=== PATIENT | female | born 1960 | race Caucasian/White ===

== ENCOUNTER 2017-09-25 09:16 | Emergency (ER) | payer BC ==
[2017-09-25 09:54] VITALS: BP 138/67
--- NOTE | 2017-09-25 10:29 | UC ---
Ear Complaint HPI - HPI Summary HPI Summary: Right ear crackling sound without pain and drainage. This started this morning and has already resolved. - History of Current Complaint Chief Complaint: UCEar Stated Complaint: rt ear complaint Time Seen by Provider: 09/25/17 10:21 Hx Obtained From: Patient Onset/Duration: Gradual Onset, Resolved Severity Initially: Mild Severity Currently: None Aggravating Factors: Nothing Alleviating Factors: Nothing Associated Signs/Symptoms: Negative: Discharge, Hearing Loss, Trauma to Ear, Swelling @, URI Symptoms - Allergies/Home Medications Allergies/Adverse Reactions: Allergies Allergy/AdvReac Type Severity Reaction Status Date / Time Iodine Allergy Rash Verified 09/25/17 09:47 Home Medications: Home Medications Cholecalciferol [D 400] 800 unit PO DAILY 09/25/17 [History Confirmed 09/25/17] Cyclosporine 0.05% OPHTH (NF) [Restasis 0.05% OPHTH] 1 drop BOTH EYES BID [History Confirmed 09/25/17] Hydrochlorothiazide TAB* [Hydrodiuril TAB*] 25 mg PO DAILY 09/25/17 [History Confirmed 09/25/17] Multiple Vitamins W/ Minerals [Multivitamin Women] 1 tab PO DAILY 09/25/17 [ History Confirmed 09/25/17] PMH/Surg Hx/FS Hx/Imm Hx Previously Healthy: Yes - Surgical History Surgical History: Yes Surgery Procedure, Year, and Place: TENDON RELEASE RIGHT EPICONDREAL--2000 - Family History Known Family History: Positive: Other - No prior ear related history. - Social History Alcohol Use: Occasionally Substance Use Type: None Smoking Status (MU): Never Smoked Tobacco Review of Systems ENT: Other - ear crackling sound. All Other Systems Reviewed And Are Negative: Yes Physical Exam Triage Information Reviewed: Yes Appearance: Well-Appearing, No Pain Distress, Well-Nourished Vital Signs: Initial Vital Signs Temp 97.7 F 09/25/17 09:49 Pulse 55 09/25/17 09:49 Resp 18 09/25/17 09:49 BP 138/67 09/25/17 09:49 Pulse Ox 100 09/25/17 09:49 Vital Signs Reviewed: Yes Eyes: Positive: Conjunctiva Clear ENT: Positive: Other - right ear canal cerumen.. Negative: Nasal drainage Neck: Positive: Supple, Nontender, No Lymphadenopathy Respiratory: Positive: Lungs clear, Normal breath sounds, No respiratory distress, No accessory muscle use. Negative: Respiratory distress Cardiovascular: Positive: RRR, No Murmur, Pulses Normal, Brisk Capillary Refill Abdomen Description: Positive: Nontender, No Organomegaly. Negative: Distended , Guarding Musculoskeletal: Positive: Strength Intact, ROM Intact, No Edema Neurological: Positive: Alert, Muscle Tone Normal, Fatigued Psychological: Positive: Age Appropriate Behavior Skin: Negative: rashes Ear Complaint Course/Dx - Differential Dx/Diagnosis Provider Diagnoses: right cerumen Discharge - Discharge Plan Condition: Good Disposition: HOME Patient Education Materials: Cerumen Impaction (ED) Referrals: Gem Marshall MD [Primary Care Provider] -
== END 2017-09-25 10:58 | disposition home or self-care (01) ==
LOC: UCCORT 09:16
DX: H61.21 Impacted cerumen, right ear (principal); Z72.89 Other problems related to lifestyle
CPT/HCPCS: 99212; G0463

== ENCOUNTER 2019-01-15 19:23 | Emergency (ER) | payer BC ==
[2019-01-15 20:44] VITALS: BP 152/83
[2019-01-15] MEDS ORDERED: Ibuprofen TAB* 600 MG PO ONE (21:09)
--- NOTE | 2019-01-15 21:15 | UC ---
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 No shortness of breath or chest pain. 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 No urinary symptoms, nausea or vomiting. - History of Current Complaint Chief Complaint: UCGeneralIllness Time Seen by Provider: 01/15/19 20:58 Hx Obtained From: Patient Onset/Duration: Started Days Ago - 2 Timing: Constant Initial Severity: Moderate Current Severity: Moderate Pain Intensity: 6 Aggravating Factors: Nothing Alleviating Factors: Nothing Associated Signs and Symptoms: Arthralgia, Cough, Headache, Myalgia - Risk Factors Pseudomonas Risk Factors: Negative Serious Bacterial Infection Risk Factors: Negative - Allergy/Home Medications Allergies/Adverse Reactions: Allergies Allergy/AdvReac Type Severity Reaction Status Date / Time iodine Allergy Rash Verified 01/15/19 20:44 Home Medications: Home Medications Ibuprofen TAB* [Advil TAB*] 200 mg PO Q8H PRN 01/15/19 [History Confirmed ] PMH/Surg Hx/FS Hx/Imm Hx - Additional Past Medical History Additional PMH: obesity Auto-immune disorder with chronically elevated CRP Cardiovascular History: Hypertension - borderline hypertension by history, mostly takes HCTZ for leg edema - Surgical History Surgical History: Yes Surgery Procedure, Year, and Place: TENDON RELEASE RIGHT EPICONDREAL--2000 - Family History Known Family History: Positive: Hypertension - mother, Other - No prior ear related history. - Social History Occupation: Employed Full-time Lives: Alone Alcohol Use: Occasionally Substance Use Type: None Smoking Status (MU): Never Smoked Tobacco Review of Systems All Other Systems Reviewed And Are Negative: Yes Constitutional: Positive: Fever, Fatigue Skin: Positive: Negative Eyes: Positive: Negative ENT: Positive: Sore Throat Respiratory: Positive: Cough. Negative: Shortness Of Breath Cardiovascular: Negative: Palpitations, Chest Pain Gastrointestinal: Negative: Abdominal Pain, Vomiting Genitourinary: Negative: Dysuria, Frequency Motor: Positive: Negative Neurovascular: Positive: Negative Musculoskeletal: Positive: Myalgia Neurological: Positive: Headache Psychological: Positive: Negative Is Patient Immunocompromised?: No - reports normal white count. Physical Exam Triage Information Reviewed: Yes Appearance: Ill-Appearing, Obese Vital Signs: Initial Vital Signs Temp 100 F 01/15/19 20:42 Pulse 95 01/15/19 20:42 Resp 16 01/15/19 20:42 BP 152/83 01/15/19 20:42 Pulse Ox 98 01/15/19 20:42 Vital Signs Reviewed: Yes Eyes: Positive: Conjunctiva Clear ENT: Positive: Pharyngeal erythema, TMs normal. Negative: Tonsillar swelling, Tonsillar exudate Neck: Positive: Supple, Nontender, No Lymphadenopathy Respiratory Exam: Other - congested cough Respiratory: Positive: Lungs clear, Normal breath sounds Cardiovascular: Positive: RRR, No Murmur Abdomen Description: Positive: Nontender, No Organomegaly, Soft Bowel Sounds: Positive: Present Musculoskeletal Exam: Normal Neurological: Positive: Alert, Muscle Tone Normal Psychological Exam: Normal Skin Exam: Normal Course/Dx - Course Course Of Treatment: Given history, cover for possible early pneumonia. Flu negative. Discussed with patient and she agrees. - Febrile Illness Differential Diagnoses: Fever of Unknown Origin, Pneumonia, Other: - influenza - Diagnoses Provider Diagnosis: Fever Discharge - Sign-Out/Discharge Documenting (check all that apply): Patient Departure All imaging exams completed and their final reports reviewed: No Studies - Discharge Plan Condition: Stable Disposition: HOME Prescriptions: Azithromycin TAB* [Zithromax TAB (Z-ALEJO) 250 mg #6 tabs] 250 mg PO DAILY #4 tab Patient Education Materials: Bacterial Pneumonia (ED) Referrals: Gem Marshall MD [Primary Care Provider] - Additional Instructions: Given your clinical appearance, and negative flu test, we will treat for possible early pneumonia. Ensure high intake of fluids and rest, use ibuprofen as needed for fever. The first dose of azithromycin was given today. Complete the course of antibiotic and follow up if you have persistent fever or do not begin to see improvement. - Billing Disposition and Condition Condition: STABLE Disposition: Home
[2019-01-15 21:32] LABS: Influenza A Molecular NEGATIVE (Negative); Influenza B Molecular NEGATIVE (Negative)
[2019-01-15] MEDS ORDERED: Azithromycin TAB* 250 MG PO ONE (21:44)
== END 2019-01-15 22:00 | disposition home or self-care (01) ==
LOC: UCCORT 19:23
DX: R50.9 Fever, unspecified (principal); R05 Cough; R51 Headache; M79.10 Myalgia, unspecified site; R53.83 Other fatigue; D89.89 Other specified disorders involving the immune mechanism, not elsewhere classified; R79.82 Elevated C-reactive protein (CRP); I10 Essential (primary) hypertension; R60.0 Localized edema
CPT/HCPCS: 99212; A9270-GY; G0463

== ENCOUNTER 2019-12-24 15:11 | Emergency (ER) | payer BC ==
[2019-12-24 17:36] LABS: Influenza A Molecular Negative (Negative); Influenza B Molecular Negative (Negative)
--- NOTE | 2019-12-24 17:41 | UC ---
Respiratory Complaint HPI - HPI Summary HPI Summary: Pt present with c/o sudden onset of fever and tender lymph nodes x 2 days. - History of Current Complaint Chief Complaint: UCGeneralIllness Stated Complaint: FEVER/ST/MORALES Time Seen by Provider: 12/24/19 17:03 Hx Obtained From: Patient ?: No Onset/Duration: Sudden Onset, Lasting Days, Still Present Timing: Constant Severity Initially: Mild Severity Currently: Mild Associated Signs And Symptoms: Positive: Fever - Risk Factors Cardiac Risk Factors: Negative Pseudomonas Risk Factors: Negative Tuberculosis Risk Factors: Negative - Allergies/Home Medications Allergies/Adverse Reactions: Allergies Allergy/AdvReac Type Severity Reaction Status Date / Time iodine Allergy Rash Verified 12/24/19 16:34 Home Medications: Home Medications Cholecalciferol (Vitamin D3) [D 400] 2,000 unit PO DAILY 09/25/17 [History Confirmed 12/24/19] Hydrochlorothiazide TAB* [Hydrodiuril TAB*] 25 mg PO DAILY 09/25/17 [History Confirmed 12/24/19] Mv-Min/Iron/Folic/Calcium/Vitk [Multivitamin Womens] 1 tab PO DAILY 03/11/18 [ History Confirmed 12/24/19] Ibuprofen TAB* [Advil TAB*] 200 mg PO Q8H PRN 01/15/19 [History Confirmed ] PMH/Surg Hx/FS Hx/Imm Hx Previously Healthy: Yes - Surgical History Surgical History: Yes Surgery Procedure, Year, and Place: TENDON RELEASE RIGHT EPICONDREAL--2000 - Family History Known Family History: Positive: Hypertension - mother, Other - No prior ear related history. - Social History Occupation: Employed Full-time Lives: With Family Alcohol Use: Occasionally Substance Use Type: None Smoking Status (MU): Never Smoked Tobacco Have You Smoked in the Last Year: No Review of Systems All Other Systems Reviewed And Are Negative: Yes Constitutional: Positive: Fever Skin: Positive: Negative Eyes: Positive: Negative ENT: Positive: Other - tender "glands" Respiratory: Positive: Negative Cardiovascular: Positive: Negative Gastrointestinal: Positive: Negative Genitourinary: Positive: Negative Motor: Positive: Negative Neurovascular: Positive: Negative Musculoskeletal: Positive: Negative Neurological/Mental Status: Positive: Negative Psychological: Positive: Negative Is Patient Immunocompromised?: No Physical Exam Triage Information Reviewed: Yes Appearance: Well-Appearing Vital Signs Reviewed: Yes Eye Exam: Normal ENT: Positive: Hearing grossly normal Respiratory: Positive: No respiratory distress Musculoskeletal Exam: Normal Neurological Exam: Normal Psychological Exam: Normal Skin Exam: Normal Respiratory Course/Dx - Differential Dx/Diagnosis Differential Diagnosis/HQI/PQRI: Influenza, Other - COVID Provider Diagnosis: Viral syndrome Discharge ED - Sign-Out/Discharge Documenting (check all that apply): Patient Departure All imaging exams completed and their final reports reviewed: No Studies - Discharge Plan Condition: Stable Disposition: HOME Patient Education Materials: Viral Syndrome (ED) Forms: COVID-19 Tested & Isolation Referrals: Gem Marshall MD [Primary Care Provider] - If Needed - Billing Disposition and Condition Condition: STABLE Disposition: Home
[2019-12-24 17:57] VITALS: BP 168/89
--- OUTSIDE RECORDS SUMMARY | 2019-12-24 18:17 | XMS REPORT | Continuity of Care Document ---
:1960 External Reference #:[id number] Author Name Gem Marshall M.D. Address [address] [place] [address] Care Team Providers Name Role Phone Tony Tucker SMELLER - Rheumatology Care Team Information Capacitor Inspector [phone] Adali Kothari MD - Sports Medicine Care Team Information Capacitor Inspector Gem Marshall - Family Medicine Care Team Information Capacitor Inspector Ed Hall MD - Gastroenterology Care Team Information Capacitor Inspector Problems Active Problems Provider Date Acute upper respiratory infection Mark Anthony Bautista M.D. Onset: 08/20/2011 Shoulder joint pain Mark Anthony Bautista M.D. Onset: 10/23/2011 Impaired fasting glycaemia Mark Anthony Bautista M.D. Onset: 12/12/2011 Obesity Mark Anthony Bautista M.D. Onset: 12/12/2011 Symptom of skin and integumentary tissue eGm Marshall M.D. Onset: 11/08 Social History Type Date Description Comments Sex Unknown Tobacco Use Start: Unknown Never Smoked Cigarettes ETOH Use Social Alcohol 1 drink a week. Tobacco Use Start: Unknown Patient has never smoked Smoking Status Reviewed: 02/03/19 Patient has never smoked Allergies, Adverse Reactions, Alerts Active Allergies Reaction Severity Comments Date Iodine rash, metallic taste, fever 09/10/2008 Medications Active Medications SIG Qnty Indications Ordering Date Provider Albuterol Sulfate HFA 2 puffs up to 8.500gm J20.9 Gem Adams 07/23/2019 108(90Base) 4 times daily Otis Marshall mcg/Act Aerosol Multivitamin daily Gem L. 07/23/2019 Otis Marshall Hydrochlorothiazide take 1/2 30tabs R60.0 Gem L. 01/03/2017 25mg Tablets tablet to 1 Otis Marshall tablet by mouth One To Two Times A Day Restasis use in eyes 1Bottle Unknown 0.05% Emulsion bid as needed Multi Complete 1 by mouth Unknown Capsules every day Vitamin D-400 once daily Unknown 400Unit Tablets History Medications Medrol dose-pack as 1pack J20.9 Gem L. 07/23/2019 - 4mg instructed Otis Marshall 11/03/2019 Tablets Immunizations CPT Code Status Date Vaccine Lot # [id number] Given 08/22/2017 Influenza Vac, Quadrivalent, Slit Virus, Im [id number] Given 06/05/2011 DO Not Use Split Influenza Virus Vaccine [id number] Given 12/14/2009 Tetanus And Diptheria Adult Preservative Free [id number] >7Yrs Vital Signs Date Vital Result Comment 11/03/2019 5:01pm BP Systolic 150 mmHg BP Diastolic 82 mmHg Heart Rate 72 /min Body Temperature 97.9 F Height 65 inches 5'5" Weight 320.00 lb BMI (Body Mass Index) 53.2 kg/m2 07/23/2019 8:44am BP Systolic 124 mmHg BP Diastolic 80 mmHg Heart Rate 80 /min Body Temperature 98.3 F Respiratory Rate 18 /min Weight 313.00 lb Results Test Acquired Date Facility Test Result H/L Range Note Laboratory test 11/03/2019 [facility] Hemoglobin A1c 5.6 % % 4.1- 5.7 finding (607)- - ([facility]) Laboratory test 07/23/2019 [facility] Quickstrep Negative Negative finding (607)- - Procedures Date Code Description Status 02/11/2019 [id number] Mammogram Completed 03/11/2018 [id number] Colonoscopy Completed 09/06/2017 [id number] Mammogram Completed 01/10/2017 [id number] Mammogram Completed 12/08/2015 [id number] Mammogram Completed 06/17/2012 [id number] Mammogram Completed 12/31/2008 [id number] Mammogram Completed Medical Devices Description No Information Available Encounters Type Date Location Provider Dx Diagnosis Office Visit 07/23/2019 [facility] Gem Adams J02.9 Acute pharyngitis , 8:30a Otis Marshall unspecified J20.9 Acute bronchitis, unspecified E66.09 Other obesity due to excess calories Office Visit 05/08/2019 8:30a [facility] Gem Adams E66.09 Other obesity Otis Marshall due to excess calories K64.8 Other hemorrhoids Assessments Date Code Description Provider 11/03/2019 R73.01 Impaired fasting glucose Gem Marshall M.D. 11/03/2019 L94.9 Localized connective tissue disorder, Gem Marshall M.D. unspecified 11/03/2019 F43.21 Adjustment disorder with depressed mood Gem Marshall M.D. 07/23/2019 J02.9 Acute pharyngitis, unspecified Gem Marshall M.D. 07/23/2019 J20.9 Acute bronchitis, unspecified Gem Marshall M.D. 07/23/2019 E66.09 Other obesity due to excess calories Gem Marshall M.D. 05/08/2019 E66.09 Other obesity due to excess calories Gem Marshall M.D. 05/08/2019 K64.8 Other hemorrhoids Gem Marshall M.D. Plan of Treatment Future Appointment(s):02/02/2020 3:40 pm - Gem [facility] M.D. at [facility]11/03/2019 - Gem Marshall M.D.R73.01 Impaired fasting euyaqaoD62.9 Localized connective tissue disorder, unspecifiedComments: Khalif CHAPPELL.comHeal your body, Myranda Tay know about the paleo program and intermittent fasting.MARCELINO Justin. EMDR. 18 and over. [phone] Smith, mind body connected/emdr Meera Pisano, Phd. [phone]. "It is never too late to be what you might have been."Yamile MathewsThe hidden [email or web address] Displays/Follow up:3 months.F43.21 Adjustment disorder with depressed moodComments:See #2. counselling highly recommended.AllComments:Medication Management Patient Understands medications she 's taking? Yes No Are there Barriers to Adherence? Yes No Has the patient been asked about herbal supplements and therapies, and OTC meds? Yes No Care Plan1. Patient has been queried about patient's goals/preferences and functional/lifestyle goals at relevant visits. If relevant, describe: na2. Treatment goals as explained to the patient: above3. Are there barriers to meeting treatment goals? Yes No If Yes, please describe:4. Self-Management goals as described to the patient: Yes No Functional Status Description No Information Available Mental Status Description No Information Available Referrals Description No Information Available
== END 2019-12-24 18:22 | disposition home or self-care (01) ==
LOC: UCCORT 15:11
DX: B34.9 Viral infection, unspecified (principal); Z88.3 Allergy status to other anti-infective agents
CPT/HCPCS: 87651; 99211; G0463; U0002

== ENCOUNTER 2019-12-30 15:05 | Observation (INO) | payer BC ==
[2019-12-30] MEDS ORDERED: NS 0.9% 1000 ML** 1,000 ML IV ONE (15:46)
--- NOTE | 2019-12-30 16:00 | ED ---
HPI Cardiac - HPI Summary HPI Summary: Patient is a 59 y/o F presenting to [facility] for new-onset afib. The patient was evaluated by her PCP today and was noted to have afib. She was referred to the ED for evaluation. Patient denies palpitations. No Hx of CAD, VTE, afib noted. Patient additionally notes that she has had a persistent fever for the past eight days. Patient has been taking Tylenol and ibuprofen SKEIN SPOOLER with only temporary relief. In ED, patient is afebrile on vitals. She denies MORALES, cough, sore throat, CP, SOB, abdominal pain, dysuria. Home medications and allergies are reviewed. - History of Current Complaint Chief Complaint: EDDysrhythmPalp Stated Complaint: NEW ON SET AFIB PER EMS Time Seen by Provider: 12/30/19 15:21 Hx Obtained From: Patient Onset/Duration: Started Hours Ago Timing: Lasting Hours Pain Intensity: 0 Pain Scale Used: 0-10 Numeric Associated Signs and Symptoms: Positive: Fever, Other: - negative - dysuria. Negative: Chest Pain, Headaches, Shortness of Breath, Palpitations, Cough, Productive Cough, Nonproductive Cough, Abdominal Pain - Allergy/Home Medications Allergies/Adverse Reactions: Allergies Allergy/AdvReac Type Severity Reaction Status Date / Time iodine Allergy Rash Verified 12/24/19 16:34 Home Medications: Home Medications Cholecalciferol (Vitamin D3) [Vitamin D3] 2,000 unit PO DAILY 09/25/17 [History Confirmed 12/30/19] Hydrochlorothiazide TAB* [Hydrodiuril TAB*] 12.5 - 25 mg PO DAILY 09/25/17 [ History Confirmed 12/30/19] Mv-Min/Iron/Folic/Calcium/Vitk [Women's Multivitamin Tablet] 1 tab PO DAILY 02/21 [History Confirmed 12/30/19] Diltiazem CD CAP* [Cardizem CD CAP*] 120 mg PO DAILY #30 cap.cd 12/31/19 [Rx] Metoprolol Tartrate TAB* [Lopressor TAB*] 25 mg PO Q12HR #60 tab 12/31/19 [Rx] Potassium Chlor TAB* [Potassium Chlor TAB 20 MEQ*] 20 meq PO EVERY OTHER DAY #7 tab.er 12/31/19 [Rx] Rivaroxaban TAB(*) [Xarelto 20 mg] 20 mg PO 1700 #30 tab 12/31/19 [Rx] PMH/Surg Hx/FS Hx/Imm Hx Endocrine/Hematology History: Denies: Hx Diabetes, Hx Thyroid Disease Cardiovascular History: Denies: Hx Hypertension Respiratory History: Denies: Hx Asthma, Hx Chronic Obstructive Pulmonary Disease (COPD) GI History: Denies: Hx Ulcer Musculoskeletal History: Denies: Hx Rheumatoid Arthritis, Hx Osteoporosis - Surgical History Surgery Procedure, Year, and Place: TENDON RELEASE RIGHT EPICONDREAL--2000 Infectious Disease History: No Infectious Disease History: Denies: Hx Hepatitis, Hx Human Immunodeficiency Virus (HIV), Traveled Outside the [place] in Last 30 Days - Family History Known Family History: Positive: Hypertension - mother, Other - No prior ear related history. - Social History Alcohol Use: Occasionally Substance Use Type: Reports: None Smoking Status (MU): Never Smoked Tobacco Have You Smoked in the Last Year: No Review of Systems Positive: Fever Negative: Sore Throat Negative: Palpitations, Chest Pain Negative: Shortness Of Breath, Cough Negative: Abdominal Pain Negative: dysuria Negative: Headache All Other Systems Reviewed And Are Negative: Yes Physical Exam - Summary Physical Exam Summary: Constitutional: Well-developed, Well-nourished, Alert. (-) Distressed Skin: Warm, Dry HENT: Normocephalic; Atraumatic Eyes: Conjunctiva normal Neck: Musculoskeletal ROM normal neck. (-) JVD, (-) Stridor, (-) Tracheal deviation Cardio: Tachycardic, irregularly irregular rhythm, Heart sounds normal; Intact distal pulses; The pedal pulses are 2+ and symmetric. Radial pulses are 2+ and symmetric. (-) Murmur Pulmonary/Chest wall: Effort normal. (-) Respiratory distress, (-) Wheezes, (-) Rales Abd: Soft, (-) tenderness, (-) Distension, (-) Guarding, (-) Rebound Musculoskeletal: (-) Edema Lymph: (-) Cervical adenopathy Neuro: Alert, Oriented x3 Psych: Mood and affect Normal Triage Information Reviewed: Yes Vital Signs On Initial Exam: Initial Vitals Temp Pulse Resp BP Pulse Ox 98.9 F 133 20 156/92 97 12/30/19 15:28 12/30/19 15:28 12/30/19 15:28 12/30/19 15:28 12/30/19 15:28 Vital Signs Reviewed: Yes Procedures - Sedation Patient Received Moderate/Deep Sedation with Procedure: No Diagnostics - Vital Signs Vital Signs Temp Pulse Resp BP Pulse Ox 12/30/19 15:35 129 23 156/92 95 12/30/19 15:33 21 12/30/19 15:28 98.9 F 133 20 156/92 97 - Laboratory Result Diagrams: 12/31/19 07:55 12/31/19 07:55 Lab Statement: Any lab studies that have been ordered have been reviewed, and results considered in the medical decision making process. - Radiology CXR Radiology Interpretation Completed By: Radiologist Summary of Radiographic Findings: IMPRESSION: 1. No focal airspace opacification. 2. Mild cardiomegaly. THIS REPORT WAS REVIEWED BY ED PHYSICIAN. - EKG 1540 Cardiac Rate: Other Rate - rate of 129 BPM EKG Rhythm: Atrial Fibrillation Summary of EKG Findings: EKG showed rapid afib with rate of 129 BPM, no STEMI. ED physician has reviewed and interpreted this EKG. Disposition - Course Course Of Treatment: Patient is a 59 y/o F presenting to [facility] for new-onset afib. The patient was evaluated by her PCP today and was noted to have afib. She was referred to the ED for evaluation. No Hx of CAD, VTE, afib noted. Patient additionally notes that she has had a persistent fever for the past eight days. Patient has been taking Tylenol and ibuprofen SKEIN SPOOLER with only temporary relief. In ED, patient is afebrile on vitals. She denies MORALES, cough, sore throat, CP, SOB, abdominal pain, dysuria. On physical exam, patient is noted to be tachycardic with an irregularly irregular rhythm. EKG showed rapid afib with rate of 129 BPM, no STEMI. Bloodwork was obtained, abnormal values include potassium 2.7, creatinine 0.96, CRP 93.07, chloride 97, albumin/ globulin ratio 0.9, MCH 32, Hgb 16.4, RBC 5.17. During ED course, patient received fluids, Klor Con Er tab 40 meq PO ED, metoprolol 25 mg PO, and diltiazem 10 mg IV SLOW. CXR IMPRESSION: 1. No focal airspace opacification. 2. Mild cardiomegaly. 1715 - Patient's case had been discussed with Dr. Lyn, Dr. Lyn accepts for admission. - Diagnoses Provider Diagnoses: Rapid atrial fibrillation, Hypokalemia - Physician Notifications Discussed Care Of Patient With: Quyen Lyn Time Discussed With Above Provider: 17:15 Instructed by Provider To: Other - 8155 - Patient's case had been discussed with Dr. Lyn, Dr. Lyn accepts for admission. - Critical Care Time Critical Care Time: 30-74 min Discharge ED - Sign-Out/Discharge Documenting (check all that apply): Patient Departure - admit - Discharge Plan Condition: Improved Disposition: ADMITTED TO [facility] - Billing Disposition and Condition Condition: IMPROVED Disposition: Admitted to [facility] - Attestation Statements Document Initiated by Ritesh: Yes Documenting Scribe: KATHRYN CONTRERAS Provider For Whom Ritesh is Documenting (Include Credential): MIKE OZUNA DO Scribjeremias Attestation: KATHRYN Brock scribed for MIKE OZUNA DO on 12/31/19 at 1405. Scribe Documentation Reviewed: Yes Provider Attestation: The documentation as recorded by the KATHRYN orantes accurately reflects the service I personally performed and the decisions made by MIKE raman DO Status of Scribe Document: Viewed
[2019-12-30 16:13] LABS: ABS Eosinophils 0.1 10^3/ul (0-0.6); ABS Lymphocytes 1.8 10^3/ul (1.0-4.8); ABS Monocytes 0.7 10^3/ul (0-0.8); ABS Neutrophils 6.7 10^3/ul (1.5-7.7); Eosinophil % 0.8 %; Hematocrit 46 % (35-47); Hemoglobin 16.4 g/dL (12.0-16.0); Lymphocyte % 18.9 %; Mean Corpuscular HGB Conc 35 g/dL (31-36); Mean Corpuscular Hemoglobin 32 pg (27-31); Mean Corpuscular Volume 90 fL (80-97); Mean Platelet Volume 7.5 fL (7.4-10.4); Platelet Count 325 10^3/uL (150-450); Red Blood Count 5.17 10^6 /uL (3.70-4.87); Red Cell Distribution Width 13 % (10-15); White Blood Count 9.3 10^3/uL (3.5-10.8)
[2019-12-30] MEDS ORDERED: Diltiazem IV BAG* D5W Premix 125 MG/125 ML BAG IV ONE (16:20)
[2019-12-30] MEDS ORDERED: Diltiazem IV push/loading dose 5 MG/ML 5 ML vial (25 mg) IV SLOW PU ONE (16:22)
[2019-12-30 16:36] LABS: Albumin 3.5 g/dL (3.2-5.2); Albumin/Globulin Ratio 0.9 (1-3); BUN/Creatinine Ratio 16.7 (8-20); C Reactive Protein 93.07 mg/L (<8.01); Calcium 9.2 mg/dL (8.6-10.3); EGFR African American 72.5 (>60); EGFR Non-African American 59.9 (>60); Globulin 3.8 g/dL (2-4); Magnesium 2.1 mg/dL (1.9-2.7); Total Protein 7.3 g/dL (6.4-8.9)
[2019-12-30 16:37] LABS: Troponin I 0.01 ng/mL (<0.03)
[2019-12-30] MEDS ORDERED: Potassium Chlor TAB* 20 MEQ TAB.ER PO ONE (16:38)
[2019-12-30 16:39] LABS: Potassium 2.7 mmol/L (3.5-5.0)
[2019-12-30 16:49] LABS: TSH (Thyroid Stimulating Horm) 1.33 mcIU/mL (0.34-5.60)
[2019-12-30] MEDS ORDERED: Metoprolol Succinate XL TAB* 50 MG PO ONE (16:54)
[2019-12-30] MEDS ORDERED: NS 0.9% 1000 ML** 1,000 ML IV SCH (18:00)
[2019-12-30] MEDS ORDERED: Rivaroxaban TAB(*) 20 MG TAB PO SCH (18:00)
[2019-12-30] MEDS ORDERED: Diltiazem IV BAG* D5W Premix 125 MG/125 ML BAG IV SCH (18:00)
[2019-12-30] MEDS ORDERED: cefTRIAXone(*) 1 GM in NS 0.9% 50 ML* 50 ML IVPB ONE (18:30)
[2019-12-30] MEDS: KCL 20 MEQ/100 ML IVPREMIX* 20 MEQ/100 ML BAG IV SCH ×3 (18:37→23:27)
--- NOTE | 2019-12-30 19:30 | HP ---
CC: Dr. Gem Marshall* HISTORY AND PHYSICAL: DATE OF ADMISSION: 12/30/19 PRIMARY CARE PROVIDER: Dr. Gem Marshall. CHIEF COMPLAINT: Daily fevers for the past 8 days. 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 She stated that she had been having fevers daily for the past 8 days. On 12/24/19, she was tested for COVID as well as influenza and streptococcus for strep throat. All those tests came back negative. Despite that, the patient continues to have daily fevers. The last high fever was 103 degrees 3 days ago. Yesterday, after she used ibuprofen and Tylenol in the evening, her temperature was 100.5 degrees. She has not been eating well due to basically no appetite and complains of generalized weakness. Denies sore throat, cough, or palpitations. When she was seen for a followup for fever today, she was noted to have rapid heart rate in the 150s. She was diagnosed as an outpatient with atrial fibrillation and sent to the hospital for evaluation. Here, she is in rapid atrial fibrillation with a heart rate in the 150s. She denies any chest pain or palpitations. She is going to be placed on overnight observation. PAST MEDICAL HISTORY: 1. Lymphedema for which the patient takes hydrochlorothiazide. 2. History of hypertension, currently as per the patient no longer treated, but she used to be on TROY inhibitor. 3. History of tendon release in the right elbow. CURRENT MEDICATIONS: Include: 1. Hydrochlorothiazide 12.5 mg daily. 2. Ibuprofen on a p.r.n. basis. 3. Vitamin D3 2000 units daily. 4. Multivitamin 1 tablet daily. ALLERGIES: IODINE. FAMILY HISTORY: Mother with history of COPD. Father with history of hypertension. Both are alive. SOCIAL HISTORY: The patient drinks 2 drinks in 1 week. She denies any tobacco or drug use. She lives alone and her mother is her surrogate. Her mother's name is Randi Kemp. The patient works at [employer]. REVIEW OF SYSTEMS: Please see history of present illness. All the remaining 12 systems were reviewed with the patient and were otherwise negative. PHYSICAL EXAMINATION GENERAL: The patient is a pleasant 59-year-old female, who is in no acute distress. The patient is alert and oriented x3. VITAL SIGNS: Blood pressure of 143/85, heart rate of 116 to 150 and irregularly irregular, respiratory rate 27, oxygen saturation 96% on room air, temperature of 98.9. HEENT: Head: Atraumatic, normocephalic. Eyes: Pupils are equal, reactive to light and accommodation. Oropharynx is clear. Mucosa moist. NECK: Supple. No JVD. No bruits bilaterally. RESPIRATORY: Clear to auscultation bilaterally. CARDIOVASCULAR: Irregularly irregular rhythm. No murmur. ABDOMEN: Soft, nontender. Bowel sounds present in all 4 quadrants. EXTREMITIES: There is bilateral mild lymphedema. Pulses are +2 bilaterally. There is no clubbing and no cyanosis. NEUROLOGIC: Speech is clear. Cranial nerves II through XII grossly intact. Motor strength is 5/5 bilaterally. DIAGNOSTIC STUDIES/LAB DATA: Included, please note that influenza status, coronavirus PCR, and group A strep rapid testing all of them were negative and they were performed on 12/24/19. CBC today showed white blood cell count of 9.3, hemoglobin of 16.4, hematocrit of 46, and platelets of 325. Sodium was 137, potassium 2.7, chloride 97, carbon dioxide 31, BUN 16, creatinine 0.96. Liver function tests unremarkable. C-reactive protein of 93. Magnesium of 2.1. Troponin of 0.01. TSH of 1.33. Portable chest x-ray reviewed by myself prior to the official radiologist's report shows possibility of left lower lung infiltrate. The patient's EKG showed atrial fibrillation with rapid ventricular response with heart rate of 129 beats per minute with no significant ST changes. ASSESSMENT AND PLAN: 1. The patient is going to be placed on overnight observation for atrial fibrillation. She is going to be placed on diltiazem drip. She received a dose of beta-babatunde in the ED. She was informed about her risk of cardioembolism due to atrial fibrillation, especially that she is asymptomatic from cardiac standpoint and she agreed to anticoagulation. She is going to be started on Xarelto at 20 mg daily. 2. The patient has had daily fevers for the past 8 days. Despite that COVID was initially negative, the testing performed on the patient is sensitive and only 70%. She also appears to have left lower lobe infiltrate. At this point, I will place the patient on broad-spectrum antibiotics including ceftriaxone and doxycycline and we will retest the patient for COVID. 3. Due to that the patient is going to be retested for COVID, I will not obtain a transthoracic echocardiogram and cardiac consultation at this point. The potential exposure risk would be too great at this point. 4. The patient's severe hypokalemia is likely dietary and that is possibly the culprit of the patient getting in atrial fibrillation. I will replace it intravenously. She also received 40 mEq of potassium p.o. in the ED. 5. For DVT prophylaxis, the patient is going to be placed on Xarelto as mentioned above. 6. In regards to her hydrochlorothiazide treatment for lymphedema, that is going to be held when the patient is being titrated on diltiazem. 7. The patient's code status is full. Her surrogate is her mother. TIME SPENT: Approximately 65 minutes was spent on admission of this patient, more than half that time was spent [id number] with the patient during the interview and physical exam. [id number]/[facility] #: [id number] NYLA
[2019-12-30] MEDS ORDERED: cefTRIAXone(*) 1 GM in NS 0.9% 50 ML* 50 ML IVPB SCH (20:00)
[2019-12-30] MEDS ORDERED: DOXYcycline CAP(*) 100 MG PO SCH (21:00)
[2019-12-30] MEDS: Metoprolol Tartrate TAB* 25 MG PO SCH (21:11)
[2019-12-30] MEDS: Diltiazem TAB* 30 MG PO SCH (21:29)
[2019-12-31] MEDS: Diltiazem TAB* 30 MG PO SCH (04:19)
[2019-12-31 08:31] LABS: ABS Basophils 0.1 10^3/ul (0-0.2); ABS Lymphocytes 1.6 10^3/ul (1.0-4.8); ABS Monocytes 0.9 10^3/ul (0-0.8); ABS Neutrophils 6.8 10^3/ul (1.5-7.7); Eosinophil % 0.3 %; Hematocrit 39 % (35-47); Hemoglobin 13.9 g/dL (12.0-16.0); Lymphocyte % 17.3 %; Mean Corpuscular HGB Conc 35 g/dL (31-36); Mean Corpuscular Hemoglobin 32 pg (27-31); Mean Corpuscular Volume 90 fL (80-97); Mean Platelet Volume 7.5 fL (7.4-10.4); Platelet Count 309 10^3/uL (150-450); Red Cell Distribution Width 14 % (10-15); White Blood Count 9.4 10^3/uL (3.5-10.8)
[2019-12-31] MEDS: Acetaminophen TAB* 325 MG PO PRN ×2 (08:31→16:09)
[2019-12-31] MEDS: Metoprolol Tartrate TAB* 25 MG PO SCH (08:32)
[2019-12-31 08:55] LABS: BUN/Creatinine Ratio 17.1 (8-20); Calcium 8.1 mg/dL (8.6-10.3); EGFR African American 86.9 (>60); EGFR Non-African American 71.9 (>60); Potassium 3.2 mmol/L (3.5-5.0)
[2019-12-31] MEDS ORDERED: Cholecalciferol TAB* 1000 UNITS PO SCH (09:00)
[2019-12-31] MEDS ORDERED: Potassium Chlor TAB* 20 MEQ TAB.ER PO ONE (10:40)
[2019-12-31] MEDS ORDERED: Diltiazem CD CAP* 120 MG PO SCH (11:00)
--- NOTE | 2019-12-31 14:01 | DS ---
CC: Dr. Marshall * DISCHARGE SUMMARY: DATE OF ADMISSION: 12/30/19 DATE OF DISCHARGE: 12/31/19 PRIMARY CARE PROVIDER: Dr. Marshall. DISPOSITION AT DISCHARGE: Home. CONDITION AT DISCHARGE: Stable. DISCHARGE DIAGNOSES: 1. Atrial fibrillation with rapid ventricular response. The patient converted to sinus rhythm after a dose of Cardizem and metoprolol. 2. Hypokalemia, likely due to low appetite. 3. Febrile illness, rule out COVID. MEDICATIONS AT DISCHARGE: Include: 1. Hydrochlorothiazide, take p.r.n. lymphedema as previously. 2. Cardizem CD 120 mg daily. 3. Metoprolol tartrate 25 mg b.i.d. 4. Xarelto 20 mg daily. 5. Potassium chloride 20 mEq every other day for a total of 7 doses, then stop. FOLLOWUP: At discharge, the patient is recommended to follow up with her primary care provider in approximately 3 to 7 days. PENDING TESTS: Pending at discharge are the patient's blood cultures and COVID testing. Please note that blood cultures will be resulted today at approximately 5 p.m., and if those are negative, the patient is going to be discharged from the hospital. The patient's COVID testing was resubmitted on 12/30/19 and is currently pending. Please note that the patient was tested on 12/24/19 for rapid strep, influenza A and B, and coronavirus and all of those were negative at that time. DIAGNOSTIC STUDIES/LAB DATA: On the day of discharge, sodium of 136, potassium 3.2, chloride 102, carbon dioxide 26, BUN 14, creatinine 0.82. CBC: White blood cell count 9.4, hemoglobin 13.9, hematocrit 39, and platelets 309. Portable chest x-ray obtained at admission and read by the radiologist as "mild cardiomegaly, no focal airspace opacification." Please note that both Cardiology consult and echocardiogram were not obtained during the patient's hospital stay in an attempt to limit exposure. Please note that this case was curbsided with our infectious disease services. HOSPITALIZATION COURSE: Yvonne Resendez is a 59-year-old female with history of lymphedema and hypertension, who stated that she had been having fevers for the past 8 days or so. Her fevers were up to 103 degrees. She also had subjective chills, but no other symptoms. Specifically, she had no respiratory symptoms, no joint pains, no nausea or vomiting, no diarrhea. Another additional problem that she experienced when she was feeling ill was that her appetite was poor. Probably due to that, she developed hypokalemia and then developed asymptomatic atrial fibrillation. When she came in to her primary care provider for followup of her being febrile still and has COVID results, she was noted to be in asymptomatic atrial fibrillation with a heart rate in the 150s. She complained of no chest pain and no shortness of breath. She was sent to the ED for evaluation. Here, she got a couple of doses of IV diltiazem as well as p.o. metoprolol and she converted within approximately 3 hours to sinus rhythm. She also was treated with multiple doses of IV potassium and p.o. potassium. She was rehydrated throughout the night. The very next day, she felt "a thousand times better." Although she did develop a temperature of 103 degrees the night of admission. She felt well and she was ready to go home. She is still going to receive another dose of potassium chloride since her potassium today was still low at 3.2. She is going to be also cautiously replaced with potassium at home with a dose every other day. Our service curbsided the infectious disease service. Due to the patient's continuation of fevers and that COVID testing sensitivity is approximately 70%, the patient was retested at admission on 12/30/19 and the results are currently pending. At this point, the recommendation from the Infectious Diseases was for the patient to be discharged after the patient's blood cultures result negative in 24 hours after admission. That should be around 5 p.m. today. The patient is agreeable to that and she is going to stay until today in the afternoon. She is recommended to follow up with Dr. Marshall in approximately 3 to 7 days. PHYSICAL EXAMINATION: On the day of discharge, blood pressure of 145/74, heart rate of 78 and regular, respiratory rate 18, oxygen saturation 95% on room air, temperature of 100.3. Please note that remainder of the physical exam was unchanged from admission. [id number]/[facility] #: [id number] NYLA
[2019-12-31 15:16] VITALS: BP 138/86
== END 2019-12-31 16:45 | disposition home or self-care (01) ==
LOC: ED 15:05 → MED 17:49
PROVIDERS: ADMIT Internal Medicine; ATTEND Internal Medicine
DX: I48.20 Chronic atrial fibrillation, unspecified (principal); R50.9 Fever, unspecified; E87.6 Hypokalemia; I10 Essential (primary) hypertension; I89.0 Lymphedema, not elsewhere classified; I51.7 Cardiomegaly; Z20.828 Contact with and (suspected) exposure to other viral communicable diseases; Z79.01 Long term (current) use of anticoagulants; Z79.899 Other long term (current) drug therapy; E66.9 Obesity, unspecified
CPT/HCPCS: 36415; 71045; 80048; 80053; 83605; 83735; 84443; 84484; 85025; 86140; 87040; 87635; 93005; 96361; 96374; 99285; A9270-GY; G0378; J0696; J3480

== ENCOUNTER 2020-01-01 14:29 | Emergency (ER) | payer BC ==
--- NOTE | 2020-01-01 14:37 | ED ---
Complex/Multi-Sys Presentation - HPI Summary HPI Summary: Patient is a 59 y/o F presenting to [facility] via EMS with chief complaint of palpitations. She was recently evaluated at [facility] for new-onset afib. Patient was admitted to [facility] and hydrated with fluids overnight. The following day, patient had stated that she felt improved and was ready to go home. Patient had negative blood cultures. She was discharged to home. Patient states that around 1130 today, the patient had onset of palpitations once more. No aggravating factors noted, patient states that she was doing "nothing" when Sx onset. Palpitations are characterized as skipping beats. She denies CP, SOB, cough, sore throat, body aches, dizziness/light-headedness, hematuria, dysuria. Patient states that she has had continued fevers, with a temp of 101 F this morning after having taken Tylenol 1000 mg (patient notes that she has been experiencing fevers for the past eight days). Patient had been tested for COVID- 19 previously and had a negative test result. Urine culture done by PCP earlier this week. Currently, she states that she feels fatigued, has been having a MORALES, and notes that the glands around her neck have felt swollen. Patient lives alone at home. Patient does not report any chills, erythema of eyes, sore throat , chest pain, shortness of breath, cough, abdominal pain, nausea/vomiting, dysuria, hematuria, myalgia, rash, or dizziness. Home medications and allergies are reviewed. - History Of Current Complaint Hx Obtained From: Patient Onset/Duration: Lasting Hours, Still Present Timing: Hours Aggravating Factor(s): nothing Associated Signs And Symptoms: Positive: Weakness - fatigue, Headache, Palpitations, Edema, Fever, Other - denies CP, SOB, cough, sore throat, body aches, dizziness/light-headedness, hematuria, dysuria, myalgia, rash. Negative : Dizziness, SOB, Cough, Chest Pain, Nausea, Vomiting, Abdominal Pain, Dysuria - Allergies/Home Medications Allergies/Adverse Reactions: Allergies Allergy/AdvReac Type Severity Reaction Status Date / Time iodine Allergy Rash Verified 12/24/19 16:34 Home Medications: Home Medications Cholecalciferol (Vitamin D3) [Vitamin D3] 400 unit PO DAILY 09/25/17 [History Confirmed 01/01/20] Hydrochlorothiazide TAB* [Hydrodiuril TAB*] 12.5 - 25 mg PO .1-2X/DAY 09/25/17 [ History Confirmed 01/01/20] Mv-Min/Iron/Folic/Calcium/Vitk [Women's Multivitamin Tablet] 1 tab PO DAILY 02/21 [History Confirmed 01/01/20] Cyclosporine 0.05% OPHTH (NF) [Restasis 0.05% OPHTH] 1 drop BOTH EYES BID PRN [History Confirmed 01/01/20] PMH/Surg Hx/FS Hx/Imm Hx Endocrine/Hematology History: Denies: Hx Diabetes, Hx Thyroid Disease Cardiovascular History: Reports: Other Cardiovascular Problems/Disorders - HX OF PALPITATIONS Denies: Hx Hypertension Respiratory History: Denies: Hx Asthma, Hx Chronic Obstructive Pulmonary Disease (COPD) GI History: Denies: Hx Ulcer Musculoskeletal History: Denies: Hx Rheumatoid Arthritis, Hx Osteoporosis Sensory History: Reports: Hx Contacts or Glasses Denies: Hx Hearing Aid Opthamlomology History: Reports: Hx Contacts or Glasses - Surgical History Surgery Procedure, Year, and Place: TENDON RELEASE RIGHT EPICONDREAL--2000 Infectious Disease History: Denies: Hx Hepatitis, Hx Human Immunodeficiency Virus (HIV) - Family History Known Family History: Positive: Hypertension - mother, Other - No prior ear related history. - Social History Alcohol Use: Occasionally Substance Use Type: Reports: None Hx Tobacco Use: No Smoking Status (MU): Never Smoked Tobacco Have You Smoked in the Last Year: No Review of Systems Positive: Fever, Fatigue. Negative: Chills Negative: Erythema Negative: Sore Throat Positive: Palpitations. Negative: Chest Pain Negative: Shortness Of Breath, Cough Negative: Abdominal Pain, Vomiting, Nausea Negative: dysuria, hematuria Positive: Edema - swelling of neck glands . Negative: Myalgia Negative: Rash Neurological/Mental Status: Other - positive - dizziness Positive: Headache All Other Systems Reviewed And Are Negative: Yes Physical Exam - Summary Physical Exam Summary: Constitutional: Well-developed, Well-nourished, Alert. (-) Distressed Skin: Warm, Dry HENT: Normocephalic; Atraumatic Eyes: Conjunctiva normal Neck: Musculoskeletal ROM normal neck. (-) JVD, (-) Stridor, (-) Tracheal deviation Cardio: Irregularly irregular, Heart sounds normal; Intact distal pulses; The pedal pulses are 2+ and symmetric. Radial pulses are 2+ and symmetric. (-) Murmur Pulmonary/Chest wall: Faint crackles in right lung base. (-) Respiratory distress, (-) Wheezes, (-) Rales Abd: Soft, (-) tenderness, (-) Distension, (-) Guarding, (-) Rebound Musculoskeletal: (-) Edema Lymph: (-) Cervical adenopathy Neuro: Alert, Oriented x3 Psych: Mood and affect Normal Triage Information Reviewed: Yes Vital Signs On Initial Exam: Initial Vital Signs Temp 98.8 F 01/01/20 14:48 Pulse 122 01/01/20 14:48 Resp 14 01/01/20 14:48 BP 149/97 01/01/20 14:48 Pulse Ox 94 01/01/20 14:48 Vital Signs Reviewed: Yes Procedures - Sedation Patient Received Moderate/Deep Sedation with Procedure: No Diagnostics - Laboratory Result Diagrams: 01/01/20 15:30 01/01/20 15:30 Lab Statement: Any lab studies that have been ordered have been reviewed, and results considered in the medical decision making process. - CT CHEST CT CT Interpretation Completed By: Radiologist Summary of CT Findings: IMPRESSION: 1. RIGHT LOWER LOBE INFECTIOUS/ INFLAMMATORY BRONCHIOLITIS. 2. SOLID CIRCUMSCRIBED 7 MM NODULE ALONG THE RIGHT MINOR FISSURE FOR WHICH 6-12 MONTH. FOLLOW-UP BY CHEST CT IS RECOMMENDED TO DOCUMENT STABILITY. 3. STIGMATA OF CHRONIC CALCIFIED GRANULOMATOUS DISEASE. 4. HEPATIC STEATOSIS. 5. CHOLELITHIASIS. THIS REPORT WAS REVIEWED BY ED PHYSICIAN. - EKG 1503 Cardiac Rate: Other Rate - rate of 132 BPM EKG Rhythm: Atrial Fibrillation Summary of EKG Findings: EKG showed rapid afib with rate of 132 BPM, no STEMI. ED physician has reviewed and interpreted this EKG. Re-Evaluation - Re-Evaluation First Eval Re-Evaluation Time: 16:53 Comment: Rate was still elevated after Diltiazem 10 mg IV. Patient received 20 mg IV Diltiazem Second Eval Re-Evaluation Time: 18:40 Comment: Rate was still elevated, Cardizem 120 mg PO administered. Third Eval Re-Evaluation Time: 21:23 Comment: Patients HR is still in mid 120s after Lopressor 5 mg IV and Metoprolol 50 mg PO. Complex Multi-Symp Course/Dx Course Of Treatment: Patient is a 59 y/o F presenting to [facility] via EMS with chief complaint of palpitations. She was recently evaluated at [facility] for new- onset afib. Patient was admitted to [facility] and hydrated with fluids overnight. The following day, patient had stated that she felt improved and was ready to go home. Patient had negative blood cultures. She was discharged to home. Patient states that around 1130 today, the patient had onset of palpitations once more. No aggravating factors noted, patient states that she was doing "nothing" when Sx onset. Palpitations are characterized as skipping beats. She denies CP, SOB, cough, sore throat, body aches, dizziness/light-headedness, hematuria, dysuria. Patient states that she has had continued fevers, with a temp of 101 F this morning after having taken Tylenol 1000 mg (patient notes that she has been experiencing fevers for the past eight days). Patient had been tested for COVID- 19 previously and had a negative test result. Currently, she states that she feels fatigued, has been having a MORALES, and notes that the glands around her neck have felt swollen. Patient lives alone at home. Patient does not report any chills, erythema of eyes, sore throat, chest pain, shortness of breath, cough, abdominal pain, nausea/vomiting, dysuria, hematuria, myalgia, rash, or dizziness. On physical exam, patient is noted to have faint crackles in right lung base as well as an irregularly irregular rhythm. EKG showed rapid afib with rate of 132 BPM, no STEMI. 1536 - Patient's case was discussed with Dr. Lyn, who had admitted the patient during her previous visit. Rate control of patient was agreed to be the goal for the patient. If rate is controlled, there is no indication for admission of the patient. During ED course, patient received fluids and diltiazem 10 mg IV SLOW PUSH. Bloodwork was obtained, abnormal values include trop of 0.03, WBC 12.5, absolute neuts 9.8, absolute neuts 9.8, absolute monos 0.9, potassium 3.4, glucose 108, total bilirubin 1.2, AST 80, ALT 119, albumin/globulin ratio 0.9. CT CHEST IMPRESSION: 1. RIGHT LOWER LOBE INFECTIOUS/INFLAMMATORY BRONCHIOLITIS. 2. SOLID CIRCUMSCRIBED 7 MM NODULE ALONG THE RIGHT MINOR FISSURE FOR WHICH 6-12 MONTH. FOLLOW-UP BY CHEST CT IS RECOMMENDED TO DOCUMENT STABILITY. 3. STIGMATA OF CHRONIC CALCIFIED GRANULOMATOUS DISEASE. 4. HEPATIC STEATOSIS. 5. CHOLELITHIASIS. INR was 1.43. 1653 Rate was still elevated after Diltiazem 10 mg IV. Patient received 20 mg IV Diltiazem. 1840 - Rate was still elevated, Cardizem 120 mg PO administered. Repeated trop was 0.02, both lactic acids were 0.9. 2001 - Patient has remained in rapid afib throughout visit. Patient's case was discussed with Dr. Real, Dr. Real will discuss potential admission with the patient. Drip to be held until Dr. Real makes admission decision. 2009 Dr. Real spoke with Dr. Lyn, it was advised to hold off on drip due to COVID-19 concerns. 5 mg lopressor, 50 mg metoprolol administration was advised. Reassess afterwards. 2122 - After Lopressor 5 mg IV and Metoprolol 50 mg PO, patients HR is still in mid 120s, afib/aflutter noted. Patient's case was discussed with Dr. Real, Dr. Real recommends Diltiazem 25 mg IV and agrees to evaluate the patient for admission. Patient is signed-out to Dr. Wallace at 2200 01/01/20 shift end pending hospitalist evaluation of the patient. - Diagnoses Provider Diagnoses: Bronchiolitis, Atrial fibrillation with RVR, Suspected COVID-19 virus infection - Physician Notifications Discussed Care Of Patient With: Quyen Lyn Time Discussed With Above Provider: 15:36 Instructed by Provider To: Other - 1536 - Patient's case was discussed with Dr. Lyn, who had admitted the patient during her previous visit. Rate control of patient was agreed to be the goal for the patient. If rate is controlled, there is no indication for admission of the patient. 2009 Dr. Real spoke with Dr. Lyn, it was advised to hold off on drip due to COVID-19 concerns. 5 mg lopressor, 50 mg metoprolol administration was advised. Reassess afterwards. After Lopressor 5 mg IV and Metoprolol 50 mg PO, patients HR is still in mid 120s, afib/aflutter noted. Patient's case was discussed with Dr. Real, Dr. Real recommends Diltiazem 25 mg IV and agrees to evaluate the patient for admission. - Critical Care Time Critical Care Time: 75-104 min - 75 minutes CCT Discharge ED - Sign-Out/Discharge Documenting (check all that apply): Sign-Out Patient Signing out patient TO: Juliane Wallace - Discharge Plan Referrals: Gem Marshall MD [Primary Care Provider] - - Attestation Statements Document Initiated by Scribe: Yes Documenting Scribe: KATHRYN CONTRERAS Provider For Whom Scribe is Documenting (Include Credential): ANGELO JUAREZ MD Scribe Attestation: IKATHRYN, scribed for ANGELO JUAREZ MD on 01/01/20 at 2662. Status of Scribe Document: Ready
--- OUTSIDE RECORDS SUMMARY | 2020-01-01 15:15 | XMS REPORT | Continuity of Care Document ---
:1960 External Reference #:[id number] Author Name Faina Siegel, DYAN Address [address] [place] [address] Care Team Providers Name Role Phone Tony Tucker KELLY - Rheumatology Care Team Information Molder Operator Adali Kothari MD - Sports Medicine Care Team Information Molder Operator Gem Marshall - Family Medicine Care Team Information Molder Operator [phone] Ed Hall MD - Gastroenterology Care Team Information Molder Operator Problems Active Problems Provider Date Acute upper respiratory infection Mark Anthony Bautista M.D. Onset: 08/20/2011 Shoulder joint pain Mark Anthony Bautista M.D. Onset: 10/23/2011 Impaired fasting glycaemia Mark Anthony Bautista M.D. Onset: 12/12/2011 Obesity Mark Anthony Bautista M.D. Onset: 12/12/2011 Symptom of skin and integumentary tissue Gem Marshall M.D. Onset: 11/08 Social History Type Date Description Comments Sex Unknown Tobacco Use Start: Unknown Never Smoked Cigarettes ETOH Use Social Alcohol 1 drink a week. Tobacco Use Start: Unknown Patient has never smoked Smoking Status Reviewed: 12/28/19 Patient has never smoked Allergies, Adverse Reactions, Alerts Active Allergies Reaction Severity Comments Date Iodine rash, metallic taste, fever 09/10/2008 Medications Active Medications SIG Qnty Indications Ordering Date Provider Multivitamin daily Gem Adams 07/23/2019 Otis Marshall Hydrochlorothiazide take 1/2 to 1 30tabs R60.0 Gem Adams 01/03/2017 25mg Tablets tablet by Otis Marshall mouth one to two times a day Restasis use in eyes 1Bottle Unknown 0.05% Emulsion bid as needed Multi Complete 1 by mouth Unknown Capsules every day Vitamin D-400 once daily Unknown 400Unit Tablets History Medications Albuterol Sulfate 2 puffs up to 4 8.500gm J20.9 Gem AlonzoJuan 07/23/2019 - HFA times daily Otis Marshall 12/28/2019 108(90Base) mcg/Act Aerosol Medrol dose-pack as 1pack J20.9 Gem AlonzoJuan 07/23/2019 - 4mg Tablets instructed Otis Marshall 11/03/2019 Immunizations CPT Code Status Date Vaccine Lot # [id number] Given 08/22/2017 Influenza Vac, Quadrivalent, Slit Virus, Im [id number] 51449 Given 06/05/2011 DO Not Use Split Influenza Virus Vaccine 05485 Given 12/14/2009 Tetanus And Diptheria Adult Preservative Free [id number] >7Yrs Vital Signs Date Vital Result Comment [...] Test Result H/L Range Note Laboratory test 12/24/2019 [facility] [place] Strep Negative Negative 1 finding Molecular Rapid Influenza A 12/24/2019 [facility] Influenza A Negative Negative & B Molecular Molecular Influenza B Molecular Negative Negative 2 Laboratory test 12/24/2019 [facility] Covid19, PCR Undetected Undetected 3 finding Laboratory test 11/03/2019 [facility] Hemoglobin A1c 5.6 % % 4.1- 5.7 finding (607)- - (Fma) Laboratory test 07/23/2019 [facility] Quickstrep Negative Negative finding (607)- - 1 Spray Gun Striper: [id number] Suboptimal collection technique may reduce sensitivity of test. Refer to the [employer] Test Catalog for collection information: [email or web address] As with all diagnostic procedures, the laboratory results obtained should be used in conjunction with other clinical information available to the physician, including confirmation by another method, as applicable. 2 Spray Gun Striper: [id number] 3 SARS-CoV-2 RNA is not detected. ADDITIONAL INFORMATION Testing was performed using the jimena SARS-CoV-2 assay ([employer] acquired by [employer] on the jimena nanoRETE0 System. Fact sheets for this Emergency Use Authorization (EUA) assay can be found at the following links: For Healthcare Providers: https://www.fda.gov/media/155354/download For Patients: https://www.fda.gov/media/322879/download Test Performed by: [place] [address] Vice President [employer]: Reyes Willson M.D. Ph.D.; CLIA# [id number] Procedures Date Code Description Status 11/03/2019 49736 Finger Or Heel Stick Completed 02/11/2019 64238026 Mammogram Completed 03/11/2018 [id number] Colonoscopy Completed 09/06/2017 [id number] Mammogram Completed 01/10/2017 [id number] Mammogram Completed 12/08/2015 [id number] Mammogram Completed 06/17/2012 [id number] Mammogram Completed 12/31/2008 [id number] Mammogram Completed Medical Devices Description No Information Available Encounters Type Date Location Provider Dx Diagnosis Office Visit 12/28/2019 Main Office Faina Reynolds R50.9 Fever, unspecified 9:00a DYAN Siegel Office Visit 11/03/2019 [facility] Gem Adams R73.01 Impaired fasting 4:00p Otis Marshall glucose L94.9 Localized connective tissue disorder, unspecified F43.21 Adjustment disorder with depressed mood Office Visit 07/23/2019 8:30a [facility] Gem Adams J02.9 Acute pharyngitis, Otis Marshall unspecified J20.9 Acute bronchitis, unspecified E66.09 Other obesity due to excess calories Assessments Date Code Description Provider 12/28/2019 R50.9 Fever, unspecified Faina Gail Siegel, OB NURSE 11/03/2019 R73.01 Impaired fasting glucose Gem Marshall M.D. 11/03/2019 L94.9 Localized connective tissue disorder, Gem Marshall M.D. unspecified 11/03/2019 F43.21 Adjustment disorder with depressed mood Gem Marshall M.D. 07/23/2019 J02.9 Acute pharyngitis, unspecified Gem Marshall M.D. 07/23/2019 J20.9 Acute bronchitis, unspecified Gem Marshall M.D. 07/23/2019 E66.09 Other obesity due to excess calories Gem Marshall M.D. Plan of Treatment Future Appointment(s):02/02/2020 3:40 pm - Gem Marshall M.D. at [facility]12/28/2019 - Faina Siegel, NPR50.9 Fever, unspecifiedComments:Tylenol or Ibuprofen for fever/pain Tylenol 650mg-1000 mg every 8 hours Motrin 400-600mg every 4-6 hours Awaiting COVID results - continue isolation if fever still present in 2 days we will have her come in to assess, UA/CXR work up fever of unknown origin.AllComments:Medication Management Patient Understands medications he 's taking? Yes No Are there Barriers to Adherence? Yes No Has the patient been asked about herbal supplements and therapies, andOT meds? Yes No Care Plan1. Patient has been queried about patient's goals/preferences and functional/ lifestyle goals at relevant visits. If relevant, describe: na2. Treatment goals as explained to the patient: above3. Are there barriers to meeting treatment goals? Yes No If Yes, please describe: health status, disease process4. Self-Management goals as described to the patient: Yes NoAs always, we strongly encourage a healthy diet and making physical activity a part of your every day life. If you have questions about how or where to start , please contact the office. Functional Status Description No Information Available Mental Status Description No Information Available Referrals Description No Information Available
--- OUTSIDE RECORDS SUMMARY | 2020-01-01 15:15 | XMS REPORT | Continuity of Care Document ---
:1960 External Reference #:[id number] Author Name Faina Siegel, DYAN Address [address] [place] [address] Care Team Providers Name Role Phone Tony Tucker KELLY - Rheumatology Care Team Information Locker Attendant Adali Kothari MD - Sports Medicine Care Team Information Locker Attendant Gem Marshall - Family Medicine Care Team Information Locker Attendant [phone] Ed Hall MD - Gastroenterology Care Team Information Locker Attendant Problems Active Problems Provider Date Acute upper [...] Patient has never smoked Smoking Status Reviewed: 12/30/19 Patient has never smoked Allergies, Adverse Reactions, [...] CPT Code Status Date Vaccine Lot # [id number] Given 08/22/2017 Influenza Vac, Quadrivalent, Slit Virus, Im [id number] 01224 Given 06/05/2011 DO Not Use Split Influenza Virus Vaccine 29326 Given 12/14/2009 Tetanus And Diptheria Adult Preservative Free [id number] >7Yrs Vital Signs Date Vital Result Comment 12/30/2019 2:05pm BP Systolic 158 mmHg difficulty with diastoic d/t irregular HR BP Diastolic 94 mmHg difficulty with diastoic d/t irregular HR Heart Rate 104 /min Body Temperature 98.9 F Respiratory Rate 20 /min O2 % BldC Oximetry 98 % 11/03/2019 5:01pm BP Systolic 150 mmHg BP Diastolic 82 mmHg Heart Rate 72 /min Body Temperature 97.9 F Height 65 inches 5'5" Weight 320.00 lb BMI (Body Mass Index) 53.2 kg/m2 Results Test Acquired Date Facility Test Result H/L Range Note Laboratory test 12/24/2019 [facility] Rapid Strep Negative Negative 1 finding Molecular Rapid Influenza A 12/24/2019 [facility] Influenza A Negative Negative & B Molecular Molecular Influenza B Molecular Negative Negative 2 Laboratory test 12/24/2019 [facility] Covid19, PCR Undetected Undetected 3 finding Laboratory test 11/03/2019 [facility] Hemoglobin A1c 5.6 % % 4.1- 5.7 finding (607)- - (Fma) Laboratory test 07/23/2019 [facility] Quickstrep Negative Negative finding (607)- - 1 Sfdc Consultant: [id number] Suboptimal collection technique may reduce sensitivity of test. Refer to the [employer] Test Catalog for collection information: [email or web address] As with all diagnostic procedures, the laboratory results obtained should be used in conjunction with other clinical information available to the physician, including confirmation by another method, as applicable. 2 Sfdc Consultant: [id number] 3 SARS-CoV-2 RNA is not detected. ADDITIONAL INFORMATION Testing was performed using the jimena SARS-CoV-2 assay ([employer] on the jimena Crunched0 System. Fact sheets for this Emergency Use Authorization (EUA) assay can be found at the following links: For Healthcare Providers: https://www.fda.gov/media/242426/download For Patients: https://www.fda.gov/media/551530/download Test Performed by: [place] [address] Lotus Notes Developer: Reyes Willson M.D. Ph.D.; CLIA# [id number] Procedures Date Code Description Status 12/30/2019 85464 Electrocardiogram Complete Completed 11/03/2019 13074 Finger Or Heel Stick Completed 02/11/2019 [id number] Mammogram Completed 03/11/2018 26146527 Colonoscopy Completed 09/06/2017 18109955 Mammogram Completed 01/10/2017 [id number] Mammogram Completed 12/08/2015 80115645 Mammogram Completed 06/17/2012 [id number] Mammogram Completed 12/31/2008 01440009 Mammogram Completed Medical Devices Description No Information Available Encounters Type Date Location Provider Dx Diagnosis Office Visit 12/30/2019 Main Office Faina Siegel, R50.9 Fever, unspecified 1:30p TONGER I48.91 Unspecified atrial fibrillation Office Visit 12/28/2019 9:00a Main Office Faina Reynolds R50.9 Fever, Siegel, TONGER unspecified Office Visit 11/03/2019 4:00p [facility] Gem Adams R73.01 Impaired fasting Otis Marshall glucose L94.9 Localized connective tissue disorder, unspecified F43.21 Adjustment disorder with depressed mood Office Visit 07/23/2019 8:30a [facility] Office Gem Adams J02.9 Acute pharyngitis, Otis Marshall unspecified J20.9 Acute bronchitis, unspecified E66.09 Other obesity due to excess calories Assessments Date Code Description Provider 12/30/2019 R50.9 Fever, unspecified Faina Siegel, TONGER 12/30/2019 I48.91 Unspecified atrial fibrillation Faina Siegel, DYAN 12/28/2019 R50.9 Fever, unspecified Faina Siegel, TONGER 11/03/2019 R73.01 Impaired fasting glucose Gem Marshall M.D. 11/03/2019 L94.9 Localized connective tissue disorder, Gem Marshall M.D. unspecified 11/03/2019 F43.21 Adjustment disorder with depressed mood Gem Marshall M.D. 07/23/2019 J02.9 Acute pharyngitis, unspecified Gem Marshall M.D. 07/23/2019 J20.9 Acute bronchitis, unspecified Gme Marshall M.D. 07/23/2019 E66.09 Other obesity due to excess calories Gem Marshall M.D. Plan of Treatment Future Appointment(s):02/02/2020 3:40 pm - Gem Marshall M.D. at [facility] [id number]/30/2019 - Faina Siegel, NPR50.9 Fever, unspecifiedNew Labs:Ua - Non Micro (Fma), Ordered: 12/30/19Comments:fever of unknown origin, in addition to the A fib with RVR sending to [facility] to initiate work up - CXR, blood cultures, to start.I48.91 Unspecified atrial fibrillationComments:sent to [facility] for continued evaluation and managementAllComments:Medication Management Patient Understands medications he 's taking? Yes No Are there Barriers to Adherence? Yes No Has the patient been asked about herbal supplements and therapies, andOTC meds? Yes No Care Plan1. Patient has been queried about patient's goals/preferences and functional/ lifestyle goals at relevant visits. If relevant, describe: na2. Treatment goals as explained to the patient: above3. Are there barriers to meeting treatment goals? Yes No If Yes, please describe: disease process4. Self-Management goals as described to the patient: Yes NoAs always, we strongly encourage a healthy diet and making physical activity a part of your everyday life. If you have questions about how or where to start, please contact the office. Functional Status Description No Information Available Mental Status Description No Information Available Referrals Description No Information Available
[2020-01-01] MEDS ORDERED: NS 0.9% 1000 ML** 1,000 ML IV ONE (15:32)
[2020-01-01] MEDS ORDERED: Diltiazem IV push/loading dose 5 MG/ML 5 ML vial (25 mg) IV SLOW PU ONE ×3 (15:32→21:26)
[2020-01-01 15:58] LABS: ABS Basophils 0.1 10^3/ul (0-0.2); ABS Eosinophils 0.1 10^3/ul (0-0.6); ABS Lymphocytes 1.6 10^3/ul (1.0-4.8); ABS Monocytes 0.9 10^3/ul (0-0.8); ABS Neutrophils 9.8 10^3/ul (1.5-7.7); Eosinophil % 0.5 %; Hematocrit 42 % (35-47); Hemoglobin 14.2 g/dL (12.0-16.0); Mean Corpuscular HGB Conc 34 g/dL (31-36); Mean Corpuscular Hemoglobin 31 pg (27-31); Mean Corpuscular Volume 90 fL (80-97); Mean Platelet Volume 7.4 fL (7.4-10.4); Platelet Count 349 10^3/uL (150-450); Red Blood Count 4.62 10^6 /uL (3.70-4.87); Red Cell Distribution Width 14 % (10-15); White Blood Count 12.5 10^3/uL (3.5-10.8)
[2020-01-01 16:18] LABS: ALT 119 U/L (7-52); AST 80 U/L (13-39); Albumin 3.3 g/dL (3.2-5.2); Albumin/Globulin Ratio 0.9 (1-3); Alkaline Phosphatase 101 U/L (34-104); Anion Gap 10 mmol/L (2-11); Blood Urea Nitrogen 9 mg/dL (6-24); CO2 Carbon Dioxide 24 mmol/L (22-32); Calcium 8.7 mg/dL (8.6-10.3); Chloride 102 mmol/L (101-111); EGFR African American 106.1 (>60); EGFR Non-African American 87.7 (>60); Globulin 3.5 g/dL (2-4); Glucose 108 mg/dL (70-100); Potassium 3.4 mmol/L (3.5-5.0); Sodium 136 mmol/L (135-145); Total Protein 6.8 g/dL (6.4-8.9)
[2020-01-01 16:21] LABS: Troponin I 0.03 ng/mL (<0.03)
[2020-01-01 16:43] LABS: INR 1.43 (0.82-1.09)
[2020-01-01 16:51] LABS: Magnesium 1.9 mg/dL (1.9-2.7)
[2020-01-01] MEDS ORDERED: Diltiazem CD CAP* 120 MG PO ONE (17:28)
[2020-01-01] MEDS ORDERED: Metoprolol Tartrate TAB* 50 mg PO ONE (20:09)
[2020-01-01] MEDS ORDERED: Metoprolol Tartrate IV* 1 MG/ML 5 ML VIAL IV ONE (20:09)
--- NOTE | 2020-01-01 23:15 | ED ---
Progress - Progress Note Progress Note: The patient is a sign-out from Dr. Frankie Sherman MD, to Dr. Juliane Wallace MD, at change of shift at 2200 on 01/01/20, pending hospitalist evaluation with plan for admission. Dr. Real has evaluated the patient and determined her safe and appropriate for discharge. Re-Evaluation - Re-Evaluation First Eval Re-Evaluation Time: 16:53 Second Eval Re-Evaluation Time: 18:40 Third Eval Re-Evaluation Time: 21:23 Course/Dx - Diagnoses Provider Diagnoses: Bronchiolitis, Atrial fibrillation with RVR, Suspected COVID-19 virus infection Discharge ED - Sign-Out/Discharge Documenting (check all that apply): Patient Departure - Patient will be discharged home., Receiving Sign-Out Receiving patient FROM: Frankie Sherman - The patient is a sign-out from Dr. Frankie Sherman MD, to Dr. Juliane Wallace MD, at change of shift at 2200 on 01/01/20, pending hospitalist evaluation. - Discharge Plan Condition: Stable Disposition: HOME Prescriptions: dilTIAZem HCl [Cardizem LA] 120 mg PO DAILY #30 tab.er.24h Metoprolol Succinate XL TAB* [Toprol XL TAB*] 25 mg PO BEDTIME #30 tab.xl Patient Education Materials: A-fib (Atrial Fibrillation) (DC), Bronchiolitis ( ED) Referrals: Gem Marshall MD [Primary Care Provider] - 3 Days Additional Instructions: Follow up with your primary care provider in 2-3 days. Return to the emergency department for any new or worsening symptoms. - Billing Disposition and Condition Condition: STABLE Disposition: Home - Attestation Statements Document Initiated by Ritesh: Yes Documenting Scribe: Charisse Melchor Provider For Whom Ritesh is Documenting (Include Credential): Juliane Wallace MD Scribe Attestation: Charisse Brock scribed for Juliane Wallace MD on 01/02/20 at 0231. Scribe Documentation Reviewed: Yes Provider Attestation: The documentation as recorded by the Charisse orantes accurately reflects the service I personally performed and the decisions made by me, Juliane Wallace MD Status of Scribe Document: Viewed
--- NOTE | 2020-01-02 00:43 | CONSULT ---
Subjective Date of Service: 01/02/20 Interval History: Patient is 59yo F with PMHx significant for Newly diagnosed Afib and started on Xarelto, HTN who presented to the ED with CC palpitations. patient was recently admitted 12/30/19 for new onset Afib and discharged 12/31/19. Patient reported fever of 1 week and was tested for COVID which came back negative. Patient sent home on Xarelto 20mg daily, Cardizem 120 mg daily and Metoprolol 25 mg BID. Here in the ER patient was given IV Cardizem 20 mg, 10 mg and a combination of IV Lopressor 5 mg and IV Cardizem 25 mg plus her home dose of Cardizem and Lopressor 50 mg before the Afib could break. Patient was not started on Cardizem drip due to the fact she is being retested for Covid -19 and it will not be appropriate for the nursing staff and allied healthcare services for risk of Covid exposure at this time. Patient denied chest pain, SOB , cough, sore throat, body aches. Patient continue to report fever, fatigue mostly with tachycardia. In the ED no reported fever recorded. Her HR now is in the 80s and 90s. In the setting of HR back to normal in the 80s and 90s. Patient will sent home to follow up Cardiology and stay quarantined until her recent Covid-19 report is out. Patient to continue on new medication regime as follows: Tab Cardizem 240 mg daily Tab Metoprolol 50 mg BID Tab Xarelto 20 mg daily To continue her potassium chloride tab as prescribed previously. These explained to the patient. Patient does not meet criteria for admission at this time. Patient is advised to report back to the ED if symptoms persist. Review of Systems - Measurements Intake and Output: Intake and Output Last 24 Hours 12/30/19 12/31/19 01/01/20 01/02/20 06:59 06:59 06:59 06:59 Intake Total 1000 Balance 1000 Weight 140.614 kg Intake: IV Fluids 1000 - Review of Systems Constitutional Symptoms: Positive: Fatigue HEENT: Positive: Normal Eyes: Positive: Normal Thyroid: Positive: Normal Pulmonary: Positive: Normal Cardiology: Positive: Palpitations Gastroenterology: Positive: Normal Genital - Urinary: Negative: Dysuria, Hematuria Endocrinology: Positive: Obesity Negative: Polydipsia, Polyuria Neurology: Negative: Diplopia, Change in Speech Psychiatry: Positive: Normal Objective Vital Signs - 8 hr 01/01/20 01/01/20 01/01/20 16:35 16:56 17:00 Temperature Pulse Rate 107 128 107 Respiratory 32 26 35 Rate Blood Pressure 132/73 137/101 (mmHg) O2 Sat by Pulse 95 93 95 Oximetry 01/01/20 01/01/20 01/01/20 17:02 17:05 17:35 Temperature Pulse Rate 95 103 105 Respiratory 30 18 24 Rate Blood Pressure 106/69 121/63 123/81 (mmHg) O2 Sat by Pulse 93 96 95 Oximetry 01/01/20 01/01/20 01/01/20 18:00 18:05 18:36 Temperature Pulse Rate 110 108 119 Respiratory 25 28 25 Rate Blood Pressure 114/75 109/79 (mmHg) O2 Sat by Pulse 96 93 94 Oximetry 01/01/20 01/01/20 01/01/20 19:00 19:06 19:36 Temperature Pulse Rate 117 127 141 Respiratory 34 21 21 Rate Blood Pressure 167/89 143/102 (mmHg) O2 Sat by Pulse 96 96 95 Oximetry 01/01/20 01/01/20 01/01/20 20:00 20:06 20:49 Temperature Pulse Rate 128 113 120 Respiratory 25 33 15 Rate Blood Pressure 131/88 138/85 (mmHg) O2 Sat by Pulse 94 97 95 Oximetry 01/01/20 01/01/20 01/01/20 21:00 21:06 21:36 Temperature Pulse Rate 107 111 111 Respiratory 35 35 7 Rate Blood Pressure 137/90 156/100 (mmHg) O2 Sat by Pulse 93 94 91 Oximetry 01/01/20 01/01/20 01/01/20 21:50 21:55 21:57 Temperature 98.2 F Pulse Rate Respiratory 26 18 Rate Blood Pressure 144/100 121/82 (mmHg) O2 Sat by Pulse Oximetry 01/01/20 01/01/20 01/01/20 22:00 22:01 22:02 Temperature Pulse Rate 75 85 92 Respiratory 20 19 25 Rate Blood Pressure 118/76 115/78 (mmHg) O2 Sat by Pulse 96 95 94 Oximetry 01/01/20 01/01/20 01/01/20 22:13 22:23 22:33 Temperature Pulse Rate 87 84 86 Respiratory 29 31 34 Rate Blood Pressure 108/76 121/74 113/72 (mmHg) O2 Sat by Pulse 92 91 91 Oximetry 01/01/20 01/01/20 01/01/20 22:43 22:53 23:00 Temperature Pulse Rate 85 95 91 Respiratory 24 21 19 Rate Blood Pressure 119/81 139/91 (mmHg) O2 Sat by Pulse 93 93 93 Oximetry 01/01/20 01/01/20 01/01/20 23:03 23:13 23:23 Temperature Pulse Rate 94 90 95 Respiratory 33 26 28 Rate Blood Pressure 106/73 112/70 118/71 (mmHg) O2 Sat by Pulse 92 93 93 Oximetry 01/01/20 01/01/20 01/01/20 23:33 23:43 23:53 Temperature Pulse Rate 93 103 91 Respiratory 24 32 29 Rate Blood Pressure 108/71 122/69 131/78 (mmHg) O2 Sat by Pulse 96 94 94 Oximetry Eyes: No Scleral Icterus, PERRLA Ears/Nose/Mouth/Throat: Clear Oropharnyx, Mucous Membranes Moist Neck: NL Appearance and Movements; NL JVP, Trachea Midline, No Thyroid Enlargement, Masses Respiratory: Symmetrical Chest Expansion and Respiratory Effort, Clear to Auscultation Cardiovascular: NL Sounds; No Murmurs; No JVD, - - Irregularly irregular Abdominal: NL Sounds; No Tenderness; No Distention, No Hepatosplenomegaly Lymphatic: No Cervical Adenopathy Extremities: No Clubbing, Cyanosis Skin: No Rash or Ulcers Neurological: Alert and Oriented x 3, NL Sensation Result Diagrams: 01/01/20 15:30 01/01/20 15:30 Assessment/Plan - Billing Plan By Medical Problem: 59 yo female with PMHx significant for HTN, Obesity and newly diagnosed Afib on Xarelto recently admitted and discharged from [facility] presented with palpitations and Afib with RVR which broke after IV Cardizem, Lopressor and PO Cardizem and Metoprolol. Patient does not meet criteria for admission at this time. She will continue on newly prescribed regimen as listed above. Follow up PCP/Cardiology. 1. Afib Tab Cardizem 240 mg daily Tab Metoprolol 50 mg BID Tab Xarelto 20 mg daily 2. HTN As above with holding parameters. VTE PPX: Patient on Xarelto 20 mg daily. Diet: Cardiac Code Status: Full code Admission Status and Rationale: Discharge home. To continue quarantine until repeat COVID test is out.
[2020-01-02] MEDS ORDERED: Metoprolol Succinate XL TAB* 50 MG PO ONE (00:53)
[2020-01-02 01:41] VITALS: BP 125/86
== END 2020-01-02 01:43 | disposition home or self-care (01) ==
LOC: ED 14:29
DX: J21.9 Acute bronchiolitis, unspecified (principal); I48.20 Chronic atrial fibrillation, unspecified; I10 Essential (primary) hypertension; K80.20 Calculus of gallbladder without cholecystitis without obstruction; Z20.828 Contact with and (suspected) exposure to other viral communicable diseases; Z79.01 Long term (current) use of anticoagulants; R94.31 Abnormal electrocardiogram [ECG] [EKG]
CPT/HCPCS: 36415; 71250; 80053; 83605; 83735; 84484; 85025; 85610; 85730; 87040; 93005; 96361; 96374; 96375; 96376; 99285; A9270-GY; J3490